=== PATIENT | female | born 1985 | race Caucasian/White ===

== ENCOUNTER → 2017-11-23 | Outpatient (CLI) | payer MEDICAID ==
[~2017-11-23] MED LIST: CEFTIN 250250 MG/TAB PO; CELEXA 20MG20 MG/TAB PO; CELEXA10 MG PO; CLEOCIN HCL300 MG PO; DESOGEN 0.15 MG1 TAB PO; MOTRIN 600600 MG/TAB PO; NORCO 325 MG-51 TAB PO; PAXIL40 MG PO; PERCOCET 325 MG1 TA2 PO; PROVENTIL0.09 MG/A1 IH; SINGULAIR 110 MG/TAB PO; SYNTHROID0.125 MG/T PO; SYNTHROID0.175 MG PO
== END ==
LOC: MC.RAD 08:03
DX: N64.4 Mastodynia (principal)

== ENCOUNTER → 2020-04-08 | Outpatient (CLI) | payer MEDICAID | LOC: COL.PUL 10:00 | DX: R06.02 Shortness of breath (principal) | CPT/HCPCS: J7674 ==

== ENCOUNTER 2024-01-04 09:50 | Emergency (ER) | payer MEDICAID ==
[~2024-01-04] VITALS: Ht 162.6 cm; Wt 136.4 kg
[~2024-01-04 09:50] MED LIST changes: +ZOFRAN ODT4 MG PO
[2024-01-04 09:55] VITALS: BP 130/56; TEMP 98.2
[2024-01-04 11:08] VITALS: PULSE 78
== END 2024-01-04 11:09 | disposition home or self-care (01) ==
LOC: COL.ER 09:50
DX: S60.212A Contusion of left wrist, initial encounter (principal); Z91.040 Latex allergy status; W22.8XXA Striking against or struck by other objects, initial encounter

== ENCOUNTER 2024-06-13 07:13 | Day surgery (SDC) | payer MEDICAID ==
[~2024-06-13] VITALS: Ht 162.6 cm; Wt 134.7 kg
[~2024-06-13 07:13] MED LIST changes: +LR 1,000 ML IV SCH; +Ondansetron 4 MG/2 ML VIAL IV PRN
[2024-06-13] MEDS ORDERED: Lidocaine PF 2% (20 MG/ML) 5 ML VIAL ONE (09:26)
[2024-06-13 10:15] VITALS: BP 109/61; PULSE 84
--- NOTE | 2024-06-13 10:15 | NUR ---
1015: Pt arrives to [facility] via cart, alert. Pt amb to chair, mother in room. VSS, denies abd pain/nausea. Offered PO sprite and muffin. 1050: Discharge instructions reviewed, pt verbalized understanding, questions invited and answered. 1100: Dr Greenberg in to talk to pt.
[2024-06-13 10:30] VITALS: BP 110/67; PULSE 78
[2024-06-13 10:45] VITALS: BP 114/77; PULSE 80
[2024-06-13 13:17] VITALS: BP 135/96; PULSE 91; TEMP 97.2
== END 2024-06-13 11:10 | disposition home or self-care (01) ==
LOC: SDCO 07:13
DX: K29.50 Unspecified chronic gastritis without bleeding (principal); K20.90 Esophagitis, unspecified without bleeding; K92.1 Melena; K64.0 First degree hemorrhoids; K64.4 Residual hemorrhoidal skin tags; R19.7 Diarrhea, unspecified; E66.01 Morbid (severe) obesity due to excess calories; R15.2 Fecal urgency; Z83.79 Family history of other diseases of the digestive system; Z87.19 Personal history of other diseases of the digestive system
CPT/HCPCS: J2704